=== PATIENT | female | born 1955 | race Caucasian/White ===

== ENCOUNTER 2023-09-13 12:08 | Outpatient (CLI) | payer MEDICARE, BC | END 2023-09-13 12:09 | disposition home or self-care (01) | LOC: CSHMRI 12:08 | PROVIDERS: ATTEND Internal Medicine | DX: M47.22 Other spondylosis with radiculopathy, cervical region (principal); H53.9 Unspecified visual disturbance; M48.02 Spinal stenosis, cervical region; M25.78 Osteophyte, vertebrae | CPT/HCPCS: 70551; 72141 ==

== ENCOUNTER 2025-10-07 08:59 | Outpatient (CLI) | payer MEDICARE | END 2025-10-07 09:00 | disposition home or self-care (01) | LOC: CSHSLEEP 08:59 | PROVIDERS: ATTEND Internal Medicine | DX: G47.33 Obstructive sleep apnea (adult) (pediatric) (principal); R06.83 Snoring; G47.10 Hypersomnia, unspecified; G47.8 Other sleep disorders | CPT/HCPCS: 95810 ==